=== PATIENT | female | born 1990 | race Two or more races ===

== ENCOUNTER 2021-10-18 13:40 | Emergency (ER) | payer MEDICAID ==
[~2021-10-18] VITALS: Ht 165.1 cm; Wt 72.6 kg
[2021-10-18 14:31] VITALS: BP 114/74
[2021-10-18] MEDS ORDERED: IBUP800T27 PO (15:45)
== END 2021-10-18 16:01 | disposition home or self-care (01) ==
LOC: ER 13:40
DX: S93.402A Sprain of unspecified ligament of left ankle, initial encounter (principal); Z90.49 Acquired absence of other specified parts of digestive tract; W22.8XXA Striking against or struck by other objects, initial encounter; Y93.89 Activity, other specified; Y92.89 Other specified places as the place of occurrence of the external cause; Y99.8 Other external cause status
CPT/HCPCS: 73610